=== PATIENT | female | born 1950 | race Caucasian/White ===

== ENCOUNTER 2019-04-04 16:55 | Observation (INO) | payer MEDICARE ==
[2019-04-04 17:34] LABS: Basophils % (A) 1 %; Eosinophils % (A) 1 %; HCT 42.6 % (34.0-46.0); HGB 14.6 gm/dL (11.4-16.0); Lymphocytes # (A) 1.4 k/uL (1.0-4.8); Lymphocytes % (A) 27 %; MCHC 34.2 g/dL (31.0-37.0); MCV 90.7 fL (80.0-100.0); Mean Platelet Volume 8.1; Monocytes # (A) 0.3 k/uL (0-1.0); Monocytes % (A) 5 %; Neutrophils # (A) 3.2 k/uL (1.3-7.7); Neutrophils % (A) 65 %; Platelet Count 221 k/uL (150-450); RDW 12.6 % (11.5-15.5)
--- NOTE | 2019-04-04 17:42 | XR ---
EXAMINATION TYPE: XR chest 2V DATE OF EXAM: 04/04/2019 COMPARISON: NONE HISTORY: Chest pain TECHNIQUE: 2 views FINDINGS: Heart and mediastinum are normal. Lungs are clear. Diaphragm is normal. There is minor spur ring in the thoracic spine. There are chest leads. IMPRESSION: No cardiopulmonary disease. Normal heart.
[2019-04-04 17:44] LABS: ALT 21 U/L (4-34); AST 35 U/L (14-36); African American GFR (CKD) >90 (>60 ml/min/1.73 sqM); Albumin 4.4 g/dL (3.5-5.0); Alkaline Phosphatase 71 U/L (38-126); Anion Gap 7 mmol/L; Blood Urea Nitrogen 10 mg/dL (7-17); Calcium 10.4 mg/dL (8.4-10.2); Carbon Dioxide 30 mmol/L (22-30); Chloride 103 mmol/L (98-107); Creatine Kinase 106 U/L (30-135); Glucose 106 mg/dL (74-99); Magnesium 1.6 mg/dL (1.6-2.3); Non-African American GFR(CKD) 89 (>60 ml/min/1.73 sqM); Potassium 3.8 mmol/L (3.5-5.1); Sodium 140 mmol/L (137-145); Total Bilirubin 0.7 mg/dL (0.2-1.3); Total Protein 7.7 g/dL (6.3-8.2)
[2019-04-04 17:55] LABS: INR 0.9 (<1.2); Partial Thromboplastin Time 23.7 sec (22.0-30.0); Prothrombin Time 9.9 sec (9.0-12.0)
--- NOTE | 2019-04-04 17:58 | ED ---
Chest Pain HPI - General Chief Complaint: Chest Pain Stated Complaint: Chest pain Time Seen by Provider: 04/04/19 17:05 Source: patient, RN notes reviewed Mode of arrival: ambulatory Limitations: no limitations - History of Present Illness Initial Comments: This is a 68-year-old female with no prior history of heart disease but a family history also history of heart monitor rel prolapse who states she's been having intermittent chest pain last 1 and days 3-/10 severity currently she is pain- free and hasn't recurred however. She also notes her blood pressure went up with it. He states it was a heaviness. No fevers chills nausea vomiting sweats. MD Complaint: chest pain - Related Data Allergies Allergy/AdvReac Type Severity Reaction Status Date / Time No Known Allergies Allergy Verified 04/04/19 17:01 Review of Systems ROS Statement: Those systems with pertinent positive or pertinent negative responses have been documented in the HPI. ROS Other: All systems not noted in ROS Statement are negative. EKG Findings - EKG Results: EKG: interpreted by CHLOE, sinus rhythm (Sinus rhythm rate of 95. Interval 164 QRS 110 QT since QTC 346/434 left exodeviation ) Past Medical History Past Medical History: No Reported History History of Any Multi-Drug Resistant Organisms: None Reported Past Surgical History: Section Past Psychological History: No Psychological Hx Reported Smoking Status: Never smoker Past Alcohol Use History: Occasional Past Drug Use History: None Reported General Exam - General Exam Comments Initial Comments: This is a well-developed well-nourished awake alert oriented 3 female Limitations: no limitations General appearance: alert, in no apparent distress Head exam: Present: atraumatic, normocephalic, normal inspection Eye exam: Present: normal appearance, PERRL, EOMI. Absent: scleral icterus, conjunctival injection, periorbital swelling ENT exam: Present: normal exam, mucous membranes moist Neck exam: Present: normal inspection. Absent: tenderness, meningismus, lymphadenopathy Respiratory exam: Present: normal lung sounds bilaterally. Absent: respiratory distress, wheezes, rales, rhonchi, stridor Cardiovascular Exam: Present: regular rate, normal rhythm, normal heart sounds. Absent: systolic murmur, diastolic murmur, rubs, gallop, clicks GI/Abdominal exam: Present: soft, normal bowel sounds. Absent: distended, tenderness, guarding, rebound, rigid Extremities exam: Present: normal inspection, full ROM, normal capillary refill. Absent: tenderness, pedal edema, joint swelling, calf tenderness Back exam: Present: normal inspection Neurological exam: Present: alert, oriented X3, CN II-XII intact Psychiatric exam: Present: normal affect, normal mood Skin exam: Present: warm, dry, intact, normal color. Absent: rash Course Vital Signs 04/04/19 04/04/19 16:57 17:19 Temperature 97.7 F Pulse Rate 108 H 98 Respiratory 18 16 Rate Blood Pressure 205/96 167/87 O2 Sat by Pulse 99 98 Oximetry Chest Pain MDM - MDM Review the imaging shows no acute findings. Patient currently has no pain. This case with Dr. Graves patient be admitted. Disposition Clinical Impression: Chest pain Disposition: ADMITTED IP TO THIS HOSP Condition: Stable Referrals: Hudson Lacey MD [Primary Care Provider] - 1-2 days
[2019-04-04] MEDS ORDERED: HEPARIN SODIUM,PORCINE 5,000 UNIT/ML 1 ML VIAL IV ONE (19:42)
[2019-04-04] MEDS ORDERED: NITROGLYCERIN SL TABS 0.4 MG TAB SUBLINGUAL PRN (19:42)
[2019-04-04] MEDS ORDERED: HEPARIN SOD,PORK IN 0.45% NACL 25,000 UNIT in 0.45% NACL 1 250ML.BAG IV SCH (19:45)
[2019-04-04] MEDS ORDERED: ALPRAZolam 0.25 MG TAB PO PRN (20:31)
[2019-04-04] MEDS ORDERED: cloNIDine HCL 0.2 MG TAB PO PRN (21:00)
[2019-04-04] MEDS ORDERED: MELATONIN 3 MG TABLET PO SCH (21:00)
--- NOTE | 2019-04-04 21:04 | P.HPIM ---
History of Present Illness H&P Date: 04/04/19 Chief Complaint: chest pain 68 year old female with no significant past medical history patient comes in today , with complaint of chest pain. she reports that pain started Friday after midnight . she described it as chest pressure , retrosternal non radiating, rated at 5/10 in severity , happened suddenly while trying to go to sleep . associated with nasuea no vomiting, otherwise no SOB, no sweating, no heart racing. no dizziness or light headedness. pain did not i mprove until she sat up in her recliner and spend the whole night on the recliner dosing off. she never experienced any chest pain like this before, she denies any chest pain with activity, but usually get winded easily and thought that it is because she is overweight and out of shape. pain persisted all day friday, she checks her blood pressure at home and was running in the 130-140. (this machine is not calibrated, and she reports that everytime she sees her PCP, her blood pressure would be in the 160s range, and she argued that its due to white coat syndrome and has been refusing to start any medications). today, pain subsided, but she noticed that her blood pressure was running in the 190 range , went to an urgent care, who recommended that she comes to the hospital for further evaluation. EKG her showed no acute ST changes, she rates her chest pain at 2-3 at this time. blood pressure was still running high 170-200 trops negative. patient admitted for cardiology evaluation and monitoring overnight to rule out ACS Otherwise she denies any fevers chills coughing trouble breathing abdominal pain changes in her bowel or urinary habits. Patient is nonsmoker. She denies ever having cardiac workup in the past Review of Systems Pertinent positives as noted in HPI. All other systems were reviewed and are negative Past Medical History Past Medical History: No Reported History History of Any Multi-Drug Resistant Organisms: None Reported Past Surgical History: Section Past Psychological History: No Psychological Hx Reported Smoking Status: Never smoker Past Alcohol Use History: Occasional Past Drug Use History: None Reported - Past Family History Family Family Medical History: No Reported History Medications and Allergies Allergies Allergy/AdvReac Type Severity Reaction Status Date / Time No Known Allergies Allergy Verified 04/04/19 17:01 Physical Exam Vitals: Vital Signs Temp Pulse Resp BP Pulse Ox 04/04/19 20:17 81 16 143/78 04/04/19 20:09 87 16 172/97 99 04/04/19 17:19 98 16 167/87 98 04/04/19 16:57 97.7 F 108 H 18 205/96 99 Intake and Output 04/04/19 04/04/19 04/04/19 06:59 14:59 22:59 Other: Weight 106.594 kg Constitutional: No acute distress, conversant, pleasant Eyes: Anicteric sclerae, moist conjunctiva, no lid-lag Pupils equal round reactive to light ENMT: NC/AT Oropharynx clear, no erythema, exudates Neck: Supple, FROM, no masses, or JVD No carotid bruits No thyromegaly Lungs: Clear to auscultation Clear to percussion Normal respiratory effort, no accessory muscle use Cardiovascular: Heart regular in rate and rhythm, No murmurs, gallops, or rubs No peripheral edema Abdominal: Soft Nontender, no guarding, rebound or rigidity Abdomen moving with respiration Normoactive bowel sounds No hepatomegaly, No splenomegaly No palpable mass No abdominal wall hernia noted Skin: Normal temperature, tone, texture, turgor No induration No subcutaneous nodules No rash, lesions No ulcers Extremities: No digital cyanosis No clubbing Pedal pulses intact and symmetrical Radial pulses intact and symmetrical No calf tenderness Psychiatric: Alert and oriented to person, place and time Appropriate affect fair judgement Neuro Muscles Strength 5/5 in all 4 extremities Sensation to light touch grossly present throughout Cranial nerves II-XII grossly intact No focal sensory deficits Lymphatics: no palpable cervical or supraclavicular , or inguinal lymph nodes Results CBC & Chem 7: 04/04/19 17:19 04/04/19 17:19 Labs: Abnormal Lab Results - Last 24 Hours (Table) 04/04/19 Range/Units 17:19 Glucose 106 H (74-99) mg/dL Calcium 10.4 H (8.4-10.2) mg/dL Assessment and Plan Plan: Chest pain rule out ACS Hypertension urgency Patient started on amlodipine Clonidine when necessary for systolic above 180 Cardiac monitoring Trend troponins Cardiology evaluation Nothing by mouth after midnight Continue with aspirin Continue with heparin drip Check lipid profile Check TSH Hypertension not currently treated Patient started on amlodipine Encouraged to follow lifestyle modification low-salt diet and weight loss Psychosomatic insomnia Xanax when necessary Melatonin CODE STATUS: Full code DVT prophylaxis: On heparin drip per ACS protocol Discussed with: Patient, ER, RN Anticipated length of stay less than [address]: Home A total of 60 minutes was spent on the care of this complex patient more than 50% of the time was spent in counseling and care coordination.
[2019-04-04] MEDS: amLODIPine 5 MG TAB PO SCH (21:06)
[2019-04-05] MEDS: NITROGLYCERIN OINT 1 INCH/GM PACKET TOPICAL SCH ×2 (02:02→07:18)
[2019-04-05 04:30] VITALS: RESP 18
[2019-04-05] MEDS ORDERED: ASPIRIN 325 MG TAB PO SCH (09:00)
[2019-04-05] MEDS ORDERED: ATORVASTATIN 20 MG TAB PO SCH (09:15)
[2019-04-05] MEDS ORDERED: METOPROLOL SUCCINATE (ER) 25 MG TAB.ER.24H PO SCH (10:00)
--- NOTE | 2019-04-05 10:37 | P.CRDCN ---
History of Present Illness History of present illness: HISTORY OF PRESENTING ILLNESS This is a pleasant 68-year-old female past medical history significant for dyslipidemia. 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 She denies prior history of coronary artery disease, diabetes mellitus or hypertension. She states she does have elevated blood pressures when she sees her physician but is typically normal at home and therefore has never been placed on medication. We have been asked to see in consultation for chest pain. She states on Friday evening when she laid him for that she felt a heavy pressure sensation in the midsternal region. She also felt extremely jittery all over on the inside. She took Tums and sat up in her recliner. The Tums did not relieve her discomfort. She did sleep intermittently through the night sitting up in her chair. At that time she had no radiation or associated symptoms. Friday all day today she continued to have ongoing chest discomfort with radiation through to the back at times. She states her back felt achy throughout the day. On Friday she started having some associated shortness of breath and mild nausea with no vomiting. She also states over the previous 2 weeks she has noticed increase shortness of breath with exertion. She is currently chest pain-free. Blood pressure on arrival to the emergency department was 205/96. She was initiated on Norvasc per the primary care team. DIAGNOSTICS EKG reveals sinus mechanism with left axis deviation heart rate 95. Chest xray negative for acute cardiopulmonary process. Laboratory reviewed, CBC unremarkable, sodium 140, potassium 3.8, creatinine 0.68, cardiac enzymes negative 3, NT proBNP 106, LDL 70 and TSH 2.14. Current cardiac medications include and simvastatin 10 mg daily. REVIEW OF SYSTEMS At the time of my exam: CONSTITUTIONAL: Denies fever or chills. CARDIOVASCULAR: Denies chest pain, shortness of breath, orthopnea, PND or palpitations. RESPIRATORY: Denies cough. GASTROINTESTINAL: Denies abdominal pain, diarrhea, constipation, nausea or vomiting. MUSCULOSKELETAL: Denies myalgias. NEUROLOGIC: Denies numbness, tingling or weakness. ENDOCRINE: Denies fatigue, weight change, polydipsia or polyurina. GENITOURINARY: Denies burning, hematuria or urgency with micturation. HEMATOLOGIC: Denies history of anemia or bleeding. PHYSICAL EXAMINATION Blood pressure 169/78 heart rate 81 afebrile and maintaining oxygen saturation on room air. CONSTITUTIONAL: No apparent distress. HEENT: Head is normocephalic. Pupils are equal, round. Sclerae anicteric. Mucous membranes of the mouth are moist. No JVD. No carotid bruit. CHEST EXAMINATION: Lungs are clear to auscultation. No chest wall tenderness is noted on palpation or with deep breathing. HEART EXAMINATION: Regular rate and rhythm. S1, S2 heard. No murmurs, gallops or rub. ABDOMEN: Soft, nontender. Positive bowel sounds. EXTREMITIES: 2+ peripheral pulses, no lower extremity edema and no calf tenderness. NEUROLOGIC EXAMINATION: Patient is awake, alert and oriented x3. ASSESSMENT Chest pain, atypical. An acute event has been ruled out. Hypertension Dyslipidemia PLAN An acute coronary event has been ruled out. Obtain 2D echocardiogram and doppler study to assess cardiac structure and function. Perform stress echocardiogram to assess for stress induced ischemia. Initiate Toprol 25 mg daily, first dose after her stress test. Agree with norvasc. Symptoms may be related to uncontrolled hypertension, less likely to be from angina. If stress test is normal she is stable for discharge from a cardiac perspective. Follow up in the office with Dr. Reeves in 2 weeks. Thank you kindly for this consultation. Nurse Practitioner note has been reviewed, I agree with a documented findings and plan of care. Patient was seen and examined. Past Medical History Past Medical History: Asthma, Chest Pain / Angina, GERD/Reflux, Hyperlipidemia, Mitral Valve Prolapse (MVP), Osteoarthritis (OA), Respiratory Disorder, Thyroid Disorder Additional Past Medical History / Comment(s): broncitis, heart racing History of Any Multi-Drug Resistant Organisms: None Reported Past Surgical History: Section Past Anesthesia/Blood Transfusion Reactions: No Reported Reaction Past Psychological History: Anxiety Additional Psychological History / Comment(s): ocd, panic in groups of people Smoking Status: Never smoker Past Alcohol Use History: Occasional Past Drug Use History: None Reported - Past Family History Mother Family Medical History: Dementia Father Additional Family Medical History / Comment(s): cabg Family Family Medical History: No Reported History Medications and Allergies Allergies Allergy/AdvReac Type Severity Reaction Status Date / Time No Known Allergies Allergy Verified 04/04/19 17:01 Physical Exam Vitals: Vital Signs Temp Pulse Pulse Resp BP BP Pulse Ox 04/05/19 07:42 97.7 F 81 18 169/78 95 04/05/19 06:27 70 04/05/19 04:30 71 18 115/60 97 04/05/19 02:06 66 04/04/19 20:17 81 16 143/78 04/04/19 20:09 87 16 172/97 99 04/04/19 17:19 98 16 167/87 98 04/04/19 16:57 97.7 F 108 H 18 205/96 99 Intake and Output 04/04/19 04/05/19 04/05/19 22:59 06:59 14:59 Other: Voiding Method Toilet Weight 106.594 kg 106.594 kg Results 04/04/19 17:19 04/04/19 17:19 Cardiac Enzymes 04/04/19 04/04/19 04/04/19 Range/Units 17:19 17:19 22:54 AST 35 (14-36) U/L Troponin I <0.012 0.013 (0.000-0.034) ng/mL 04/05/19 Range/Units 05:32 AST (14-36) U/L Troponin I <0.012 (0.000-0.034) ng/mL Coagulation 04/04/19 04/05/19 Range/Units 17:19 02:14 PT 9.9 (9.0-12.0) sec APTT 23.7 50.9 H (22.0-30.0) sec Lipids 04/05/19 Range/Units 05:32 Triglycerides 58 (<150) mg/dL Cholesterol 133 (<200) mg/dL HDL Cholesterol 51 (40-60) mg/dL CBC 04/04/19 Range/Units 17:19 WBC 5.0 (3.8-10.6) k/uL RBC 4.70 (3.80-5.40) m/uL Hgb 14.6 (11.4-16.0) gm/dL Hct 42.6 (34.0-46.0) % Plt Count 221 (150-450) k/uL Comprehensive Metabolic Panel 04/04/19 Range/Units 17:19 Sodium 140 (137-145) mmol/L Potassium 3.8 (3.5-5.1) mmol/L Chloride 103 (98-107) mmol/L Carbon Dioxide 30 (22-30) mmol/L BUN 10 (7-17) mg/dL Creatinine 0.68 (0.52-1.04) mg/dL Glucose 106 H (74-99) mg/dL Calcium 10.4 H (8.4-10.2) mg/dL AST 35 (14-36) U/L ALT 21 (4-34) U/L Alkaline Phosphatase 71 (38-126) U/L Total Protein 7.7 (6.3-8.2) g/dL Albumin 4.4 (3.5-5.0) g/dL Current Medications Generic Name Dose Route Start Last Admin Trade Name Freq PRN Reason Stop Dose Admin Alprazolam 0.25 mg 04/04/19 20:31 04/04/19 21:05 Xanax PO 0.25 mg TID PRN Administration Anxiety Amlodipine Besylate 5 mg 04/04/19 20:45 04/04/19 21:06 Norvasc PO 5 mg DAILY ALE Administration Aspirin 325 mg 04/05/19 09:00 Aspirin PO DAILY [facility] Heparin Sodium/Sodium Chloride 250 mls @ 9.999 mls/hr 04/04/19 19:45 04/04/19 20:20 25,000 unit/ Sodium Chloride IV 9.38 units/kg/hr .Q24H ALE 9.999 mls/hr Administration Protocol 9.38 UNITS/KG/HR Melatonin 3 mg 04/04/19 21:00 04/04/19 21:06 Melatonin PO 3 mg HS ALE Administration Nitroglycerin 0.4 mg 04/04/19 19:42 Nitrostat SUBLINGUAL Q5M PRN Chest Pain Nitroglycerin 1 inch 04/05/19 00:00 04/05/19 07:18 Nitro-Bid Oint TOPICAL Not Given Q6HR [facility] Intake and Output 04/04/19 04/05/19 04/05/19 22:59 06:59 14:59 Other: Voiding Method Toilet Weight 106.594 kg 106.594 kg Patient Weight 04/06/19 06:59 Weight 106.594 kg 04/04/19 17:19 04/04/19 17:19
[2019-04-05] MEDS: amLODIPine 5 MG TAB PO SCH (10:38)
--- NOTE | 2019-04-05 11:38 | ECHOF ---
Referral Reason:cp MEASUREMENTS -------- HEIGHT: 177.8 cm WEIGHT: 106.6 kg BP: 139/50 RVIDd: 3.7 cm (< 3.3) IVSd: 1.2 cm (0.6 - 1.1) LVIDd: 4.5 cm (3.9 - 5.3) LVPWd: 1.2 cm (0.6 - 1.1) IVSs: 1.5 cm LVIDs: 3.5 cm LVPWs: 1.1 cm LA Diam: 3.3 cm (2.7 - 3.8) LAESV Index (A-L): 24.70 ml/m Ao Diam: 2.9 cm (2.0 - 3.7) AV Cusp: 1.5 cm (1.5 - 2.6) LA Diam: 3.4 cm (2.7 - 3.8) MV E Rowdy: 0.53 m/s MV DecT: 285 ms MV A Rowdy: 0.73 m/s MV E/A Ratio: 0.72 RAP: 5.00 mmHg RVSP: 43.86 mmHg FINDINGS -------- Sinus rhythm. This was a technically good study. The left ventricular size is normal. There is mild concentric left ventricular hypertrophy. Overa ll left ventricular systolic function is normal with, an EF between 55 - 60 %. The diastolic fillin g pattern is normal for the age of the patient 6.25. The right ventricle is normal in size. The left atrial size is normal. Normal LA size by volume 22+/-6 ml/m2. The right atrial size is normal. There is mild aortic valve sclerosis. There is no evidence of aortic regurgitation. The mitral valve leaflets are mildly thickened. Mild mitral regurgitation is present. Mild tricuspid regurgitation present. There is mild to moderate pulmonary hypertension. The right ventricular systolic pressure, as measured by Doppler, is 43.86mmHg. Trace/mild (physiologic) pulmonic regurgitation. The aortic root size is normal. There is no pericardial effusion. CONCLUSIONS -------- 1. Sinus rhythm. 2. This was a technically good study. 3. The left ventricular size is normal. 4. There is mild concentric left ventricular hypertrophy. 5. Overall left ventricular systolic function is normal with, an EF between 55 - 60 %. 6. The diastolic filling pattern is normal for the age of the patient 6.25 7. The right ventricle is normal in size. 8. The left atrial size is normal. 9. Normal LA size by volume 22+/-6 ml/m2. 10. The right atrial size is normal. 11. There is mild aortic valve sclerosis. 12. The mitral valve leaflets are mildly thickened. 13. Mild mitral regurgitation is present. 14. Mild tricuspid regurgitation present. 15. There is mild to moderate pulmonary hypertension. 16. The right ventricular systolic pressure, as measured by Doppler, is 43.86mmHg. 17. Trace/mild (physiologic) pulmonic regurgitation. 18. The aortic root size is normal. 19. There is no pericardial effusion. PATTERN VAULT CLERK: Cindy Bermudez RDCS
--- NOTE | 2019-04-05 14:13 | ECHOS ---
STRESS ECHOCARDIOGRAM INDICATIONS: Chest pain. BASELINE HEART RATE: 97 BASELINE BLOOD PRESSURE: 139/50 MAXIMUM HEART RATE: 157 MAXIMUM BLOOD PRESSURE: 197/64 85% MPHR: 128 100% MPHR: 150 METS: 3.4 MAXIMUM STAGE REACHED: 1 TOTAL EXERCISE TIME: 2:18 CLINICAL INFORMATION: Patient was exercised for a total period of 2.5 minutes. The peak heart rate of 157 was achieved. Maximum blood pressure of 197/64 mmHg was noted. Resting EKG shows normal sinus rhythm with normal CO interval and QRS duration and normal ST-T waves. No ST-segment depression suggestive of ischemia was noted. The baseline echocardiographic images reveals normal left ventricular chamber size with normal left ventricular systolic function in the immediate post exercise period. Normal increase in the wall thickness and contractility was noted. FINAL IMPRESSION: This stress echocardiographic study is negative for stress-induced ischemia. Patient's exercise tolerance is below average. Occasional premature ventricular contractions are noted. MMODL / IJN: [id number] /
[2019-04-05 15:32] VITALS: BP 144/88; PULSE 87; TEMP 97.8
--- NOTE | 2019-04-05 16:57 | P.DS ---
Providers Date of admission: 04/04/19 19:42 Attending physician: Gela Hsieh MD Consults: 04/04/19 23:23 Consult Physician Routine Consulting Provider: Axel Kelsey Consult Reason/Comments: chest pain, hypertension Do you want consulting provider notified?: Yes, Notify in am Primary care physician: [facility] Course: Admission: 04/04/2019 Discharge : 04/05/2019 Consultations:Dr. Keo Jordan cardiology Procedures: 1. Echocardiogram showed preserved LV function and no significant valvular disease 2. Dobutamine stress echo showed normal EF and no signs of reversible ischemia Follow-up: With PCP and cardiology Started on amlodipine and will need to check her blood pressure and further adjust her medications Simvastatin discontinued and started on atorvastatin to avoid interactions with amlodipine Reason for admission: Chest pain and hypertensive urgency Discharge diagnosis 1. Atypical chest pain 2. Hypertensive urgency 3. Hypothyroidism History of present illness: As per history and physical admission: "68 year old female with no significant past medical history patient comes in today , with complaint of chest pain. she reports that pain started Friday after midnight . she described it as chest pressure , retroste rnal non radiating, rated at 5/10 in severity , happened suddenly while trying to go to sleep . associated with nasuea no vomiting, otherwise no SOB, no sweating, no heart racing. no dizziness or light headedness. pain did not improve until she sat up in her recliner and spend the whole night on the recliner dosing off. she never experienced any chest pain like this before, she denies any chest pain with activity, but usually get winded easily and thought that it is because she is overweight and out of shape. pain persisted all day friday, she checks her blood pressure at home and was running in the 130-140. (this machine is not calibrated, and she reports that everytime she sees her PCP, her blood pressure would be in the 160s range, and she argued that its due to white coat syndrome and has been refusing to start any medications). today, pain subsided, but she noticed that her blood pressure was running in the 190 range , went to an urgent care, who recommended that she comes to the hospital for further evaluation. EKG her showed no acute ST changes, she rates her chest pain at 2-3 at this time. blood pressure was still running high 170-200 trops negative. patient admitted for cardiology evaluation and monitoring overnight to rule out ACS " Hospital course Patient was admitted under observation. Blood pressure was controlled with amlodipine. She was also given 1 dose of metoprolol. Cardiology evaluated the patient. She underwent echocardiogram and stress test as mentioned above without any findings of any reversible ischemia. The day of discharge she was completely asymptomatic without any chest pain or shortness of breath or any other discomfort. Her blood pressure better controlled. Cardiology evaluated and cleared the patient for discharge Patient was discharged home in stable condition with prescription for Norvasc. He advised patient to have further follow-up for her hypertension and management to PCP office and cardiology. Physical examination on date of discharge: Vital Signs: I have reviewed the vital signs. GENERAL: Well-nourished, Well-developed , no apparent distress, cooperative Eyes: PERRL, extraoculry movements intact, clear conjunctiva Head: : Atraumatic external nose and ears, oropharyngeal mucosa is moist without lesions or exudates Neck: Symmetric, trachea midline, No thyromegaly, no masses or neck vain pulsat ion, no neck rigidity CVS: +S1/S2, No murmurs or gallops. Peripheral pulses 2+ and equal in all extremities. RESP: Unlabored respiratory effort. Clear to auscultation bilaterally. Abdomen: Bowel sounds present in all 4 quadrants, Soft to palpation, Nontender/Nondistended, No hepatosplenomegaly, no hernias or masses, no CVA tnderness , no abdominal bruit Musculoskeletal: Extremities w/o deformity, No cyanosis or clubbing, no joint s welling Skin: Warm, Dry. No rashes or lesions Patient Condition at Discharge: Stable Plan - Discharge Summary Discharge Rx Participant: No New Discharge Prescriptions: New Atorvastatin [Lipitor] 20 mg PO DAILY #30 tab amLODIPine [Norvasc] 5 mg PO DAILY #30 tab No Action Simvastatin [Zocor] 10 mg PO HS Levothyroxine Sodium [Synthroid] 125 mcg PO DAILY Ferrous Sulfate [Feosol] 162.5 mg PO DAILY Aspirin EC [Ecotrin Low Dose] 81 mg PO DAILY Glucosamine/MSM/Chrond/D3/Bosw [Pkpxpnrgsbr-Istpgi-ZKC-D3 Cplt] 1 tab PO DAILY Calcium Carbonate/Vitamin D3 [Calcium 600-Vit D3 500 Softgel] 1 cap PO DAILY Super B-Complex 1 tab PO DAILY Multivit-Min/FA/Lycopen/Lutein [Centrum Silver Tablet] 1 tab PO DAILY Biotin 5 mg PO DAILY Ascorbic Acid [Vitamin C] 500 mg PO DAILY Turmeric Root Extract [Turmeric] 500 mg PO DAILY Potassium Gluconate 99 mg PO DAILY [place]-3 Fatty Acids/Fish Oil [Fish Oil 1,000 mg Softgel] 1 cap PO DAILY Docusate [Colace] 100 mg PO DAILY Cranberry Fruit Extract [Cranberry] 500 mg PO DAILY Discharge Medication List Ascorbic Acid [Vitamin C] 500 mg PO DAILY 04/05/19 [History] Aspirin EC [Ecotrin Low Dose] 81 mg PO DAILY 04/05/19 [History] Atorvastatin [Lipitor] 20 mg PO DAILY #30 tab 04/05/19 [Rx] Biotin 5 mg PO DAILY 04/05/19 [History] Calcium Carbonate/Vitamin D3 [Calcium 600-Vit D3 500 Softgel] 1 cap PO DAILY 04/05/19 [History] Cranberry Fruit Extract [Cranberry] 500 mg PO DAILY 04/05/19 [History] Docusate [Colace] 100 mg PO DAILY 04/05/19 [History] Ferrous Sulfate [Feosol] 162.5 mg PO DAILY 04/05/19 [History] Glucosamine/MSM/Chrond/D3/Bosw [Tcnksmcjeii-Gjcotg-JIC-D3 Cplt] 1 tab PO DAILY 04/05/19 [History] Levothyroxine Sodium [Synthroid] 125 mcg PO DAILY 04/05/19 [History] Multivit-Min/FA/Lycopen/Lutein [Centrum Silver Tablet] 1 tab PO DAILY 04/05/19 [History] [place]-3 Fatty Acids/Fish Oil [Fish Oil 1,000 mg Softgel] 1 cap PO DAILY 04/05/19 [History] Potassium Gluconate 99 mg PO DAILY 04/05/19 [History] Simvastatin [Zocor] 10 mg PO HS 04/05/19 [History] Super B-Complex 1 tab PO DAILY 04/05/19 [History] Turmeric Root Extract [Turmeric] 500 mg PO DAILY 04/05/19 [History] amLODIPine [Norvasc] 5 mg PO DAILY #30 tab 04/05/19 [Rx] Follow up Appointment(s)/Referral(s): Hudson Lacey MD [Primary Care Provider] - 1-2 days Anoop Reeves MD [STAFF PHYSICIAN] - 2 Weeks Patient Instructions/Handouts: Amlodipine (By mouth), Atorvastatin (By mouth), DASH Eating Plan (DC) Discharge Disposition: HOME SELF-CARE
== END 2019-04-05 17:31 | disposition home or self-care (01) ==
LOC: EC 16:55 → 1SOBS 19:42
PROVIDERS: ADMIT Internal Medicine; ATTEND Internal Medicine
DX: R07.89 Other chest pain (principal); I16.0 Hypertensive urgency; E03.9 Hypothyroidism, unspecified; E78.5 Hyperlipidemia, unspecified; F42.9 Obsessive-compulsive disorder, unspecified; G47.00 Insomnia, unspecified; I10 Essential (primary) hypertension; I34.1 Nonrheumatic mitral (valve) prolapse; J45.909 Unspecified asthma, uncomplicated; Z79.899 Other long term (current) drug therapy; E66.3 Overweight; R06.02 Shortness of breath; R11.0 Nausea; Z82.49 Family history of ischemic heart disease and other diseases of the circulatory system; Z82.0 Family history of epilepsy and other diseases of the nervous system; Z79.82 Long term (current) use of aspirin; Z79.890 Hormone replacement therapy; Z68.33 Body mass index [BMI] 33.0-33.9, adult
CPT/HCPCS: 96366 ×3; 96376; 96365; 99285; 36415; 93005 ×2; 93306; 93351; 83880; 80061; 80053; 84443; 82550; 83690; 83735; 84484 ×2; 85025; 85610; 85730 ×2; 71046; G0378 ×2; J1644 ×2

== ENCOUNTER → 2021-10-08 | Outpatient (CLI) | payer MEDICARE ==
[2021-10-08 19:09] LABS: African American GFR (CKD) 104.8 (60.0-200.0); Albumin 4.5 g/dL (3.8-4.9); Albumin/Globulin Ratio 1.96 (1.60-3.17); Anion Gap 8.9 mmol/L (10.00-18.00); BUN/Creat Ratio 24.83 Ratio (12.00-20.00); Blood Urea Nitrogen 14.9 mg/dL (9.0-27.0); Carbon Dioxide 28.1 mmol/L (20.0-27.5); Globulin 2.3 g/dL (1.6-3.3); Non-African American GFR(CKD) 90.4 (60.0-200.0); Total Bilirubin 0.4 mg/dL (0.30-1.20); Total Protein 6.8 g/dL (6.2-8.2)
== END | disposition home or self-care (01) ==
LOC: LABWHC1 12:45
PROVIDERS: ATTEND Internal Medicine Endocrinology, Diabetes & Metabolism
DX: E21.0 Primary hyperparathyroidism (principal)
CPT/HCPCS: 36415; 80053; 82306; 83970

== ENCOUNTER → 2021-10-11 | Outpatient (CLI) | payer MEDICARE ==
--- NOTE | 2021-10-11 13:04 | US ---
EXAMINATION TYPE: US thyroid st tissue head/neck DATE OF EXAM: 10/11/2021 COMPARISON: NONE CLINICAL HISTORY: E21.0 HYPERPARATHYROIDISM. Hyperparathyroidism GLAND SIZE: Right Lobe: 4.8 x 1.5 x 1.5 cm Overall Parenchyma: heterogenous with increased color Doppler flow. Left Lobe: 4.8 x 1.6 x 1.7 cm Overall Parenchyma: heterogeneous with increased color Doppler flow. Isthmus Thickness: 0.4 cm NODULES RIGHT: # of nodules measured on right: 0 LEFT: # of nodules measured on left: 0 ISTHMUS: # of nodules measured in the isthmus: 1 1. 0.3 x 0.2 x 0.3 cm,hyperechoic nodule, which is wider than tall, with smooth margins, with echoge govind foci. Bilateral neck scanned, no evidence of lymphadenopathy. IMPRESSION: 1. Heterogenous vascular thyroid gland correlate with serum markers for thyroiditis. 2. Calcified 3 mm isthmus nodule. No additional nodules identified. 2017 ACR TI-RADS LEVEL: TR-RADS 1 - BENIGN: No FNA *Highest TI-RADS level nodule reported
--- NOTE | 2021-10-12 13:22 | BD ---
EXAMINATION TYPE: Axial Bone Density DATE OF EXAM: 10/11/2021 COMPARISON: NONE CLINICAL HISTORY: 71 years year old Female. ICD-10 CODE: E21.0 HYPERPARATHYROIDISM Height: 67 Weight: 173 FRAX RISK QUESTIONS: Alcohol (3 or more units per day): NO Family History (Parent hip fracture): NO Glucocorticoids (More than 3mos): NO History of Fracture in Adulthood: NO Secondary Osteoporosis: 1. Type 1 Diabetes: NO 2. Hyperthyroidism: NO 3. Menopause before 45: NO 4. Malnutrition: NO 5. Chronic liver disease: NO Rheumatoid Arthritis: NO Current Tobacco Use: NO RISK FACTORS HISTORY OF: Hip Fracture (Right/Left): NO Spine Fracture: NO History of Wrist Fracture: NO Surgery to Spine/Hip(right/left)/Wrist (right/left): NO Family History of Osteoporosis: YES, SISTER Active: NO Diet low in dairy products/other sources of calcium: YES Postmenopausal woman: YES Take estrogen and/or progesterone medications: NO Lost more than 2 inches in height since high school: YES Frequent falls: NO Poor Health: NO Hyperparathyroidism: NO Adrenal Insufficiency: NO MEDICATIONS: Prednisone or other steroids: NO Thyroid Medications: SYNTHROID How Long: PAST 30 YEARS Osteoporosis Medications: NO Additional Medications: NORVASC, LIPITOR, MULTI VIT., MAGNESIUM, Additional History: EXAM MEASUREMENTS: Bone mineral densitometry was performed using the [employer] System. Bone mineral density as measured about the Lumbar spine is: ----- L1-L4(G/cm2): 1.219 T Score Values are as follows: ----- L1: -0.2 ----- L2: -0.8 ----- L3: 1.3 ----- L4: 0.9 ----- L1-L4: 0.3 BASELINE STUDY Bone mineral density about the R hip (g/cm2): 0.644 Bone mineral density about the L hip (g/cm2): 0.744 T Score values are as follows: -----R Neck: -2.8 -----L Neck: -2.1 -----R Total: -3.6 -----L Total: -2.1 BASELINE STUDY FRAX%s: The graph provided illustrates a 18.9% chance for a major osteoporotic fx and a 6.4% chance f or the hips probability for fx in 10 years time. IMPRESSION: Osteoporosis (T Score less than -2.5). There is increased fracture risk and therapy is usually indicated based on age. Re-Screen 1-2 years. NOTE: T-SCORE=SD OF THE YOUNG ADULT MEAN.
== END | disposition home or self-care (01) ==
LOC: RADUSWWP 12:06
PROVIDERS: ATTEND Internal Medicine Endocrinology, Diabetes & Metabolism
DX: M81.0 Age-related osteoporosis without current pathological fracture (principal); E04.2 Nontoxic multinodular goiter
CPT/HCPCS: 76536; 77080

== ENCOUNTER → 2021-12-12 | Outpatient (CLI) | payer MEDICARE ==
[2021-12-12 11:03] LABS: ALT 20 U/L (4-34); AST 33 U/L (14-36); African American GFR (CKD) >90 (>60 ml/min/1.73 sqM); Albumin 4.3 g/dL (3.5-5.0); Albumin/Globulin Ratio 1.7; Alkaline Phosphatase 71 U/L (38-126); Anion Gap 11 mmol/L; Blood Urea Nitrogen 15 mg/dL (7-17); Calcium 10.3 mg/dL (8.4-10.2); Carbon Dioxide 29 mmol/L (22-30); Chloride 100 mmol/L (98-107); Globulin 2.6 g/dL; Glucose 79 mg/dL (74-99); Non-African American GFR(CKD) >90 (>60 ml/min/1.73 sqM); Sodium 140 mmol/L (137-145); Total Bilirubin 0.6 mg/dL (0.2-1.3); Total Protein 6.9 g/dL (6.3-8.2)
--- NOTE | 2021-12-13 09:46 | NM ---
EXAMINATION TYPE: NM parathyroid w/spect DATE OF EXAM: 12/12/2021 COMPARISON: Ultrasound 10/11/2021 HISTORY: Hyperparathyroidism TECHNIQUE: Following administration of 25 mCi Tc99m Sestamibi. Anterior projection images of the neck and chest were obtained 10 minutes and 4 hours post injection. SPECT images of the neck and chest were obtaine d and reconstructed in three axes. FINDINGS: Thyroid tracer washout: Delayed images demonstrate mildly asymmetric uptake which is thought to repre sent residual thyroid uptake left greater than right. Parathyroid uptake: None. The two-hour delayed images do not demonstrate any focal abnormal persisten t uptake in the region of the parathyroid glands to suggest parathyroid adenoma. Normal uptake: There is physiological tracer uptake in the salivary glands, and thyroid gland. IMPRESSION: Normal parathyroid imaging study. No evidence for mediastinal uptake to suggest mediastinal parathyro id adenoma as described above.
== END | disposition home or self-care (01) ==
LOC: RADNMMAIN 10:18
PROVIDERS: ATTEND Internal Medicine Endocrinology, Diabetes & Metabolism
DX: E21.0 Primary hyperparathyroidism (principal)
CPT/HCPCS: 80053; 82306; 83970; 78071; A9500

== ENCOUNTER → 2022-09-11 | Outpatient (CLI) | payer MEDICARE ==
[2022-09-11 13:41] LABS: ALT 21 U/L (4-34); AST 32 U/L (14-36); African American GFR (CKD) >90 (>60 ml/min/1.73 sqM); Albumin 3.9 g/dL (3.5-5.0); Albumin/Globulin Ratio 1.3; Alkaline Phosphatase 66 U/L (38-126); Anion Gap 7 mmol/L; Blood Urea Nitrogen 11 mg/dL (7-17); Calcium 8.7 mg/dL (8.4-10.2); Carbon Dioxide 29 mmol/L (22-30); Chloride 104 mmol/L (98-107); Globulin 2.9 g/dL; Glucose 90 mg/dL (74-99); Non-African American GFR(CKD) >90 (>60 ml/min/1.73 sqM); Potassium 4.2 mmol/L (3.5-5.1); Sodium 140 mmol/L (137-145); Total Bilirubin 0.6 mg/dL (0.2-1.3); Total Protein 6.8 g/dL (6.3-8.2)
== END | disposition home or self-care (01) ==
LOC: LABWHC1 11:07
PROVIDERS: ATTEND Internal Medicine Endocrinology, Diabetes & Metabolism
DX: E03.8 Other specified hypothyroidism (principal); E21.0 Primary hyperparathyroidism
CPT/HCPCS: 36415; 80053; 82306; 83970; 84443

== ENCOUNTER → 2022-11-04 | Outpatient (CLI) | payer MEDICARE ==
--- NOTE | 2022-11-05 09:32 | CT ---
EXAMINATION TYPE: CT right knee - [facility] Protocol DATE OF EXAM: 11/04/2022 COMPARISON: None HISTORY: RT knee osteoarthritis with valgus deformity. CT DLP: 1109 mGycm Automated exposure control for dose reduction was used. Contrast: None Technique: [facility] presurgical planning of the right knee. Images were obtained in the axial plane at 2 mm thick sections through the hip and ankle and 1 mm thick sections through the knee. Reconstructed i mages in the coronal and sagittal plane are reviewed. FINDINGS: Hip: Femoral head articulates with the acetabulum. No acute fractures are evident. Pelvis appears unr emarkable. Sacroiliac joints have degenerative change. Knee: There is also joint space within the lateral compartment with moderately advanced degenerative changes. Some sclerosis and tiny subchondral cysts. Slightly milder degenerative changes are within the medial compartment. Small joint effusion is present. Patellofemoral joint space changes are prese nt. Spurring is present Ankle: Ankle mortise appears intact. There may be some degenerative change present. Soft tissue swell ing appears to be present medially. IMPRESSION: 1. CT for [facility] knee presurgical planning. 2. Moderately advanced degenerative changes within the right knee joint spaces.
== END | disposition home or self-care (01) ==
LOC: RADCTMAIN 14:19
PROVIDERS: ATTEND Orthopaedic Surgery
DX: Z01.818 Encounter for other preprocedural examination (principal); M21.061 Valgus deformity, not elsewhere classified, right knee; M17.11 Unilateral primary osteoarthritis, right knee

== ENCOUNTER → 2022-11-13 | Outpatient (CLI) | payer MEDICARE ==
[2022-11-13 14:45] LABS: Partial Thromboplastin Time 26.6 sec (22.0-30.0); Prothrombin Time 10.4 sec (9.0-12.0)
[2022-11-13 19:45] LABS: Appearance,Urine Clear (Clear); Bilirubin,Urine Negative (Negative); Blood,Urine Trace (Negative); Color,Urine Yellow (Yellow); Ketones,Urine Negative (Negative); Nitrite,Urine Negative (Negative); Specific Gravity,Urine 1.005 (1.001-1.030); Urobilinogen,Urine 0.2 E.U./DL
[2022-11-13 19:51] LABS: Bacteria,Urine None Seen (None Seen)
[2022-11-13 20:00] LABS: ALT 21 U/L (8-44); AST 33 U/L (13-35); Albumin 4.7 d/dL (3.8-4.9); Albumin/Globulin Ratio 1.88 Ratio (1.60-3.17); Alkaline Phosphatase 63 U/L (41-126); BUN/Creat Ratio 27.33 Ratio (12.00-20.00); Blood Urea Nitrogen 16.4 mg/dL (9.0-27.0); Calcium 9.8 mg/dL (8.7-10.3); Carbon Dioxide 29.3 mmol/L (21.6-31.8); Chloride 100 mmol/L (96-109); Globulin 2.5 d/dL (1.6-3.3); Glucose 93 mg/dL (70-110); Sodium 141 mmol/L (135-145); Total Bilirubin 0.6 mg/dL (0.3-1.2); Total Protein 7.2 d/dL (6.2-8.2)
[2022-11-13 22:32] LABS: HCT 43.9 % (37.2-46.3); HGB 14.1 d/dL (12.0-15.0); MCH 30.7 pg (27.0-32.0); MCHC 32.1 d/dL (32.0-37.0); MCV 95.4 FL (80.0-97.0); Mean Platelet Volume 10.9 FL (9.5-12.2); NRBC Per 100 WBC 0 X 10*3/uL (0.00-0.01); Platelet Count 197 X 10*3/uL (140-440); RDW 12.9 % (11.5-14.5); WBC 3.56 X 10*3/uL (4.50-10.00)
== END | disposition home or self-care (01) ==
LOC: LABPAT 13:45
PROVIDERS: ATTEND Orthopaedic Surgery
DX: Z01.812 Encounter for preprocedural laboratory examination (principal); M17.11 Unilateral primary osteoarthritis, right knee
CPT/HCPCS: 80053; 81001; 85027; 85610; 85730; 87070

== ENCOUNTER → 2022-11-26 | Outpatient (CLI) | payer MEDICARE ==
--- NOTE | 2022-11-26 14:47 | CT ---
EXAMINATION TYPE: CT right knee - [facility] Protocol CT DLP: 666.4 mGycm, Automated exposure control for dose reduction was used. DATE OF EXAM: 11/26/2022 1:52 PM COMPARISON: None CLINICAL INDICATION:Female, 72 years old with history of M17.11 OSTEOARTHRITIS, RIGHT KNEE; PHH, Righ t knee [facility]. TECHNIQUE: Axial images were obtained of the right knee . Additional coronal and sagittal reformatte d images and soft tissue and bone window were obtained for review. Contrast used: mL of , Oral contrast used: None FINDINGS: There is no evidence of fracture, subluxation, or dislocation. No significant soft tissue swelling or joint effusion is identified. No focal muscular atrophy or edema is identified. No radiop aque foreign body identified. Osteophyte formation and joint space narrowing of the hips. There is osteophyte formation and joint s pace narrowing of the knee. Multifocal osteoarthrosis changes of the foot. IMPRESSION: 1. Severe right knee osteoarthrosis. 2. Mild bilateral hip osteoarthrosis. 3. Mild bilateral ankle osteoarthrosis.
== END | disposition home or self-care (01) ==
LOC: RADCTMAIN 13:24
PROVIDERS: ATTEND Orthopaedic Surgery
DX: M17.11 Unilateral primary osteoarthritis, right knee (principal); M21.061 Valgus deformity, not elsewhere classified, right knee; M16.0 Bilateral primary osteoarthritis of hip; M19.071 Primary osteoarthritis, right ankle and foot; M19.072 Primary osteoarthritis, left ankle and foot

== ENCOUNTER → 2023-05-19 | Outpatient (CLI) | payer MEDICARE ==
[2023-05-19 15:35] LABS: ALT 22 U/L (8-44); AST 30 U/L (13-35); Albumin 4.5 g/dL (3.8-4.9); Alkaline Phosphatase 62 U/L (41-126); Blood Urea Nitrogen 10.8 mg/dL (9.0-27.0); Calcium 9.3 mg/dL (8.7-10.3); Carbon Dioxide 29.2 mmol/L (21.6-31.8); Chloride 103 mmol/L (96-109); Chol/HDL Ratio 1.98 Ratio; Globulin 2.5 g/dL (1.6-3.3); Glucose 86 mg/dL (70-110); LDL Cholesterol,Calculated 59.2 mg/dL (0.0-131.0); Sodium 143 mmol/L (135-145); Total Bilirubin 0.6 mg/dL (0.3-1.2); VLDL Calculation 10.08 mg/dL (5.00-40.00)
== END | disposition home or self-care (01) ==
LOC: LABWHC1 11:25
PROVIDERS: ATTEND Internal Medicine Interventional Cardiology
DX: E78.2 Mixed hyperlipidemia (principal)
CPT/HCPCS: 36415; 80053; 80061

== ENCOUNTER → 2023-06-02 | Outpatient (CLI) | payer MEDICARE | END | disposition home or self-care (01) | LOC: LABWHC1 15:59 | PROVIDERS: ATTEND Orthopaedic Surgery | DX: M25.561 Pain in right knee (principal); M25.461 Effusion, right knee; Z47.1 Aftercare following joint replacement surgery; Z96.651 Presence of right artificial knee joint; T84.53XA Infection and inflammatory reaction due to internal right knee prosthesis, initial encounter | CPT/HCPCS: 36415; 85379; 85652; 86140 ==

== ENCOUNTER → 2023-07-08 | Outpatient (CLI) | payer MEDICARE ==
[2023-07-08 19:04] LABS: Appearance,BF Bloody; Color,BF Red; Nucleated Cells, Body Fluid 200 /uL; RBC, Body Fluid 1330333 /uL
[2023-07-08 19:21] LABS: Mononuclear WBC,Body Fluid 54 %; Polynuclear WBC,Body Fluid 42 %; Total Cells Counted,Body Fluid 100
[2023-07-09 05:00] LABS: Synovial Fld Crystals Seen (None Seen)
== END | disposition home or self-care (01) ==
LOC: LABWHC1 15:22
PROVIDERS: ATTEND Orthopaedic Surgery
DX: M25.461 Effusion, right knee (principal); M16.11 Unilateral primary osteoarthritis, right hip; I48.91 Unspecified atrial fibrillation; T84.84XD Pain due to internal orthopedic prosthetic devices, implants and grafts, subsequent encounter; M25.561 Pain in right knee; Z47.1 Aftercare following joint replacement surgery; Z96.651 Presence of right artificial knee joint; Z79.01 Long term (current) use of anticoagulants
CPT/HCPCS: 36415; 85379; 85652; 86140; 87070; 87075; 87205; 89050; 89060

== ENCOUNTER 2023-08-27 11:14 | Day surgery (SDC) | payer MEDICARE ==
[2023-08-27 12:08] VITALS: RESP 16; TEMP 98.4
[2023-08-27] MEDS: LACTATED RINGERS 1,000 ML IV SCH (12:15)
[2023-08-27] MEDS: IV FLUID CONTINUATION 1,000 ML IV ONE (12:16)
[2023-08-27] MEDS ORDERED: PROPOFOL 10 MG/ML 20 ML VIAL IV ONE (12:49)
--- NOTE | 2023-08-27 13:03 | P.PCN ---
Date of Procedure: 08/27/23 Procedure(s) Performed: BRIEF HISTORY: Patient is a 73-year-old pleasant white female scheduled for an elective colonoscopy as a part of screening for colon cancer and positive Cologuard. PROCEDURE PERFORMED: Colonoscopy with biopsy. PREOPERATIVE DIAGNOSIS: Screening for colon cancer/positive Cologuard. IV sedation per Anesthesia. PROCEDURE: After informed consent was obtained, the patient, was brought into the endoscopy unit. IV sedation was administered by Anesthesia under continuous monitoring. Digital rectal examination was normal. Initially the Olympus CF-160 flexible video colonoscope was then inserted in the rectum, gradually advanced into the cecum without any difficulty. Careful examination was performed as the scope was gradually being withdrawn. Ileocecal valve and the appendiceal orifice were visualized and appeared normal. Prep was excellent. Mucosa of the cecum, ascending colon, appeared normal. In the transverse colon there was a 5 mm polyp that was removed by cold biopsy. Rest of the transverse colon, descending colon, sigmoid colon, and rectum appeared normal. In the sigmoid colon there was a 3 mm polyp removed by cold biopsy. Scattered left-sided diverticulosis seen. Retroflexion was performed in the rectum and no lesions were seen. The patient tolerated the procedure well. IMPRESSION: 5 mm transverse colon polyp status post cold biopsy 3 mm sigmoid colon polyp status post cold biopsy Scattered sigmoid diverticula RECOMMENDATIONS: Findings of this examination were discussed with the patient as well as her family.. She was advised to follow-up with the biopsy results. If the biopsy reveals adenoma she can have repeat colonoscopy in 5 years.
[2023-08-27 13:25] VITALS: BP 114/60; PULSE 70
== END 2023-08-27 13:43 | disposition home or self-care (01) ==
LOC: ORWHC2ENDO 11:14
PROVIDERS: ATTEND Internal Medicine Gastroenterology
DX: D12.3 Benign neoplasm of transverse colon (principal); D12.5 Benign neoplasm of sigmoid colon; K57.30 Diverticulosis of large intestine without perforation or abscess without bleeding; I48.91 Unspecified atrial fibrillation; I10 Essential (primary) hypertension; E78.5 Hyperlipidemia, unspecified; I34.1 Nonrheumatic mitral (valve) prolapse; K21.9 Gastro-esophageal reflux disease without esophagitis; E07.9 Disorder of thyroid, unspecified; F41.9 Anxiety disorder, unspecified; Z79.899 Other long term (current) drug therapy; Z79.890 Hormone replacement therapy; Z79.01 Long term (current) use of anticoagulants
CPT/HCPCS: 88305; 45380; J2704

== ENCOUNTER → 2023-11-04 | Outpatient (CLI) | payer MEDICARE ==
--- NOTE | 2023-12-02 12:32 | MR ---
Site ID synapse default Patient Adriana Jean Baptiste A ID [id number] Age/Gender: 73Y, F Order # N/A Procedure MR brain wo/w con Date 11/04/2023 3:33:33 PM INDICATION: Patient age: Female; 73 year old; Reason for study: Right eye pseudopapilledema. COMPARISON: None. TECHNIQUE: Multi planar, multi sequence imaging was performed through the brain. The patient was then given 8 cc of Gadavist intravenously and multi planar, T1 fat-saturation images were obtained. FINDINGS: The johnson-white junctions and basal cisterns appear unremarkable. No ventriculomegaly. Narrow lateral ventricles notably along the anterior horns with slitlike appearance. Diffusion-weighted imaging show s no evidence of restricted diffusion to suggest acute/subacute infarct. Empty sella morphology. Norm al posterior pituitary bright spot. Intracranial arterial flow voids are maintained. Midline structur es show no abnormality. Few small T2/FLAIR hyperintense subcortical and periventricular white matter foci. Largest in the left frontal periventricular location measures up to 3 mm (series 601, image 17) . No corresponding enhancement. No other abnormal enhancement. The susceptibility weighted images do not reveal any evidence for micro-hemorrhage. Age-appropriate cerebral volume. The bone marrow signal is within normal limits. The globes are unremarkable. No bulging of the optic disks or abnormal concavity of the posterior scleral surface. No surrounding optic nerve fluid or op tic nerve tortuosity. 1.5 cm nonenhancing T2 hyperintense lesion identified within the left nasophary nx likely representing a mucous retention cyst. Mild mucosal thickening of the ethmoid sinuses. IMPRESSION: 1. No evidence of intracranial mass, acute/subacute infarct, or abnormal enhancement. 2. Findings of empty sella with somewhat slitlike appearance of the anterior horns of the lateral valerie tricles however no MRI evidence of papilledema to suggest idiopathic intracranial hypertension. 3. Nonspecific white matter changes, likely related to small vessel ischemic disease.
== END | disposition home or self-care (01) ==
LOC: RADMRIMAIN 18:15
PROVIDERS: ATTEND Ophthalmology
DX: H47.333 Pseudopapilledema of optic disc, bilateral (principal)
CPT/HCPCS: 70553; A9585

== ENCOUNTER → 2023-11-28 | Outpatient (CLI) | payer MEDICARE ==
--- NOTE | 2023-11-28 19:22 | BD ---
EXAMINATION TYPE: Axial Bone Density DATE OF EXAM: 11/28/2023 CLINICAL HISTORY: 73 years old Female. ICD-10 CODE: E21.3 HYPERPARATHYROIDISM Height: 66in Weight: 191lb FRAX RISK QUESTIONS: Secondary Osteoporosis: RISK FACTORS HISTORY OF: MEDICATIONS: Thyroid Medications: Which medication: Synthroid How Lon+ years EXAM MEASUREMENTS: Bone mineral densitometry was performed using the [employer] System. Bone mineral density as measured about the Lumbar spine is: ----- L1-L4(G/cm2): 1.372 T Score Values are as follows: ----- L1: 0.2 ----- L2: 0.9 ----- L3: 2.9 ----- L4: 2.2 ----- L1-L4: 1.6 Z Score Values are as follows: ----- L1: 1.2 ----- L2: 1.9 ----- L3: 3.9 ----- L4: 3.2 ----- L1-L4: 2.6 Bone mineral density has: Increased 12.6% since study of: 10-11-21 Bone mineral density about the R hip (g/cm2): 0.627 Bone mineral density about the L hip (g/cm2): 0.720 T Score values are as follows: -----R Neck: -2.8 -----L Neck: -2.0 -----R Total: -3.0 -----L Total: -2.3 Z Score values are as follows: -----R Neck: -1.4 -----L Neck: -0.6 -----R Total: -1.8 -----L Total: -1.1 Bone mineral density has: Increased 3.7% since study of: 10-11-21 FRAX%s: The graph provided illustrates a 19.1% chance for a major osteoporotic fx and a 6.9% chance f or the hips probability for fx in 10 years time. IMPRESSION: Osteoporosis (T Score less than -2.5). There is increased fracture risk and therapy is usually indicated based on age. Re-Screen 1-2 years. NOTE: T-SCORE=SD OF THE YOUNG ADULT MEAN.
== END | disposition home or self-care (01) ==
LOC: RADBDWWP 14:16
PROVIDERS: ATTEND Family Medicine
DX: E21.3 Hyperparathyroidism, unspecified
CPT/HCPCS: 77080

== ENCOUNTER → 2024-05-18 | Outpatient (CLI) | payer MEDICARE ==
[2024-05-18 15:12] LABS: ALT 22 U/L (8-44); AST 33 U/L (13-35); Albumin 4.3 g/dL (3.8-4.9); Albumin/Globulin Ratio 1.79 Ratio (1.60-3.17); Alkaline Phosphatase 67 U/L (41-126); BUN/Creat Ratio 18.17 Ratio (12.00-20.00); Blood Urea Nitrogen 10.9 mg/dL (9.0-27.0); Calcium 9.5 mg/dL (8.7-10.3); Carbon Dioxide 30.1 mmol/L (21.6-31.8); Chloride 104 mmol/L (96-109); Chol/HDL Ratio 2.08 Ratio; Globulin 2.4 g/dL (1.6-3.3); Glucose 91 mg/dL (70-110); LDL Cholesterol,Calculated 57.6 mg/dL (0.0-131.0); Potassium 4.2 mmol/L (3.5-5.5); Sodium 144 mmol/L (135-145); Total Bilirubin 0.7 mg/dL (0.3-1.2); Total Protein 6.7 g/dL (6.2-8.2)
== END | disposition home or self-care (01) ==
LOC: LABWHC1 11:41
PROVIDERS: ATTEND Internal Medicine Interventional Cardiology
DX: E78.2 Mixed hyperlipidemia (principal)
CPT/HCPCS: 36415; 80053; 80061